=== PATIENT | female | born 2000 | race Caucasian/White ===

== ENCOUNTER 2019-01-24 21:45 | Emergency (ER) | payer MEDICAID, OTHER ==
[~2019-01-24] VITALS: Ht 175.3 cm; Wt 100.3 kg
[~2019-01-24 21:45] MED LIST: BIRTH CONTROL; SULF-169 PO
[2019-01-24 21:48] VITALS: BP 125/79
--- NOTE | 2019-01-24 22:35 | NUR ---
pt given dc instructions and script, pt educated regarding dc rx for alyssa, mucinex and tessalon. pt a&o, resps even and unlabored, nadn at dc. pt amb to dc desk with steady gait, all questions answered.
== END 2019-01-24 22:50 | disposition home or self-care (01) ==
LOC: ED 22:03
DX: J06.9 Acute upper respiratory infection, unspecified (principal); B97.89 Other viral agents as the cause of diseases classified elsewhere
CPT/HCPCS: 71046; 99283

== ENCOUNTER 2021-01-03 23:30 | Emergency (ER) | payer OTHER ==
[~2021-01-03] VITALS: Ht 175.3 cm; Wt 100.0 kg
--- NOTE | 2021-01-03 23:43 | NUR ---
PT BIB [facility] FOR SYNCOPE AND A GLF AT WORK AFTER CLIMBING STAIRS. + LOC. PT NOW HAS RIGHT SIDED NECK PAIN WITH DIZZINESS AND WOOD. HX OF DEPRESSION. VSS. LAB AT BEDSIDE. PT PLACED ON PULSE OX AND BOARD SAW RUNNER. CALL LIGHT IN REACH
[2021-01-03] MEDS ORDERED: ACETAMINOPHEN 500 MG TABLET ONE (23:46)
[2021-01-03 23:47] LABS: BASOPHILS % (AUTO) 1 % (0-1); EOSINOPHILS % (AUTO) 1 % (1-7); LYMPHOCYTES % (AUTO) 29 % (22-44); MEAN CORPUSCULAR HEMOGLOBIN 29.9 pg (27.0-34.8); MEAN CORPUSCULAR HGB CONC 33.7 g/dL (32.4-35.8); MEAN PLATELET VOLUME 7.3 fL (7.4-10.4); MONOCYTES % (AUTO) 8 % (2-9); NEUTROPHILS % (AUTO) 61 % (42-75); PLATELET COUNT 356 x10^3/uL (130-400); RED BLOOD COUNT 4.55 x10^6/uL (3.82-5.3); RED CELL DISTRIBUTION WIDTH 13.1 % (9.6-15.2)
[2021-01-03 23:50] LABS: MD NO
[2021-01-03 23:58] LABS: ALBUMIN 3.4 g/dL (3.4-5.0); ANION GAP 8 mmol/L (5-15); CALCIUM 8.7 mg/dL (8.5-10.1); CHLORIDE 111 mmol/L (98-107); CREATININE 0.88 mg/dL (0.55-1.02)
[2021-01-04] MEDS ORDERED: ACETAMINOPHEN 500 MG TABLET PO ONE
[2021-01-04 00:48] VITALS: BP 116/73
--- NOTE | 2021-01-04 01:09 | NUR ---
Patient given discharge instructions and they have confirmed that they understand the instructions. Patient ambulatory with steady gait.
== END 2021-01-04 01:11 | disposition home or self-care (01) ==
LOC: ED 01-04 01:00
DX: R55 Syncope and collapse (principal); R42 Dizziness and giddiness; R51.9 Headache, unspecified; F17.210 Nicotine dependence, cigarettes, uncomplicated
CPT/HCPCS: 36415; 80048; 82040; 84703; 85025; 93005; 99284; 99406